=== PATIENT | male | born 1955 | race Caucasian/White ===

== ENCOUNTER 2018-07-24 10:43 | Day surgery (SDC) | payer MEDICARE, MEDICAID ==
[2018-07-24] MEDS ORDERED: Xylocaine 1% Vial 30 ML PF IJ ONE (10:44)
[2018-07-24] MEDS ORDERED: Depo-Medrol 40 MG/ML IM ONE (10:44)
[2018-07-24] MEDS ORDERED: Sodium Chloride 0.9(Preservative Free) 10 ML IJ ONE (10:44)
[2018-07-24] MEDS ORDERED: DIPRIVAN 200 MG/20 ML IV ONE (10:44)
[2018-07-24] MEDS ORDERED: Lactated Ringers 1,000 ML IV ONE (14:53)
--- NOTE | 2018-07-24 16:02 | XRAY ---
45 seconds fluoroscopy time in surgery for lumbar IVETTE.
--- NOTE | 2018-07-25 04:40 | XRAY ---
Indication: Lumbar epidural steroid injection. Intraoperative fluoroscopy was provided for 45 seconds. Posterior and lateral intraoperative C-arm images reveal a posterior fusion of L4-L5 on the right. I believe there is a laminectomy at L4-L5. A posterior spinal needle is projected over the upper L3 level just to the right of midline.. Some contrast media has been injected. Correlate with intraoperative findings/report.
== END 2018-07-24 13:50 | disposition home or self-care (01) ==
LOC: SDC-PAIN 10:43
PROVIDERS: ATTEND Psychiatry & Neurology Pain Medicine
DX: M54.16 Radiculopathy, lumbar region (principal)
CPT/HCPCS: 62323; 72020; 77003; J1030; J2001; J2704; Q9966

== ENCOUNTER 2018-09-18 09:55 | Day surgery (SDC) | payer MEDICARE, MEDICAID | END 2018-09-18 11:00 | disposition home or self-care (01) | LOC: SDC-PAIN 09:55 | PROVIDERS: ATTEND Psychiatry & Neurology Pain Medicine | DX: Z53.09 Procedure and treatment not carried out because of other contraindication (principal) ==

== ENCOUNTER 2018-09-25 10:10 | Day surgery (SDC) | payer MEDICARE, MEDICAID ==
[2018-09-25] MEDS ORDERED: Depo-Medrol 40 MG/ML IM ONE (10:11)
[2018-09-25] MEDS ORDERED: DIPRIVAN 200 MG/20 ML IV ONE (10:11)
[2018-09-25] MEDS ORDERED: Sodium Chloride 0.9(Preservative Free) 10 ML IJ ONE (10:11)
--- NOTE | 2018-09-25 14:40 | XRAY ---
Indication: L3-L5 bilateral IVETTE. Intraoperative fluoroscopy was provided for 1 minute 14 seconds. 3 digital spot images submitted for interpretation demonstrates posterior spinal needle tips projecting over the expected course of the right L3 and L4 nerve roots. Small amount of contrast injected for needle tip placement. Incidental right posterior L4-L5 spinal hardware and L4-L5 laminectomy with overlying spinal stimulator leads. Correlate with intraoperative findings/report.
--- NOTE | 2018-09-25 14:44 | XRAY ---
1 minute and 14 seconds fluoroscopy time in surgery for bilateral L3-L5 IVETTE.
[2018-09-25] MEDS ORDERED: Lactated Ringers 1,000 ML IV ONE (14:59)
== END 2018-09-25 13:45 | disposition home or self-care (01) ==
LOC: SDC-PAIN 10:10
PROVIDERS: ATTEND Psychiatry & Neurology Pain Medicine
DX: M54.16 Radiculopathy, lumbar region (principal); Z79.899 Other long term (current) drug therapy
CPT/HCPCS: 64483; 64484; 72020; 77003; J1030; J2704; Q9966